=== PATIENT | male | born 1935 ===

== ENCOUNTER 2016-08-25 14:52 | Emergency (ER) | payer SELFPAY | END 2016-08-25 14:55 | disposition home or self-care (01) | LOC: CFTX 14:52 | DX: S60.451A Superficial foreign body of left index finger, initial encounter (principal); I10 Essential (primary) hypertension; Z23 Encounter for immunization; Z88.1 Allergy status to other antibiotic agents; W45.8XXA Other foreign body or object entering through skin, initial encounter; Y92.009 Unspecified place in unspecified non-institutional (private) residence as the place of occurrence of the external cause | CPT/HCPCS: 90471; 90715; 99283 ==